=== PATIENT | female | born 1965 | race Two or more races ===

== ENCOUNTER → 2019-06-08 | Day surgery (SDC) | payer OTHER ==
--- NOTE | 2019-06-10 18:10 | PATH ---
Surgical Pathology Report Patient Name: DUYEN MCNEILL [facility]. Rec. #: [id number] /Age/Gender: 1965 (Age: 54) / F Account: [id number] Location: [facility] Taken: 06/08/2019 Received: 06/09/2019 Reported: 06/10/2019 Physicians: Zelda Roblero M.D. Specimen(s) Received LEFT BREAST 3.00 Clinical History 1.1 cm mass Final Diagnosis BREAST, LEFT, 3:00, ULTRASOUND GUIDED CORE BIOPSY: FIBROADENOMA. FIBROCYSTIC CHANGES INCLUDING STROMAL FIBROSIS, APOCRINE METAPLASIA, MICROCYST, AND RARE MICROCALCIFICATIONS. Electronically Signed Diane Young M.D. Gross Description Received in formalin labeled "left breast, 3:00" are 7 hubbard-yellow, cylindrical portions of fibroadipose tissue ranging from 0.7-1.1 cm in length and averaging 0.2 cm diameter. The specimens are submitted in toto in one cassette. Time to formalin fixation: <1 minute Total formalin fixation time: ~7 hours. MLSULMA/06/09/2019 issa/06/09/2019
== END | disposition home or self-care (01) ==
LOC: JRADUS-SUR 10:03
PROVIDERS: ATTEND Internal Medicine
PROC: 0HBU3ZX Excision of Left Breast, Percutaneous Approach, Diagnostic (ICD-10-PCS; principal; 2019-06-08)
DX: D24.2 Benign neoplasm of left breast (principal)
CPT/HCPCS: 19083; 76942-TC; 87899; 88305-TC; A4648

== ENCOUNTER 2021-11-18 11:19 | Emergency (ER) | payer OTHER ==
[2021-11-18 11:38] VITALS: PULSE 74; TEMP 97.9; BMI 27.3
[2021-11-18] MEDS ORDERED: KETOROLAC TROMETHAMINE 30 MG/1 ML VIAL IM ONE (11:56)
[2021-11-18] MEDS ORDERED: KETOROLAC TROMETHAMINE 30 MG/1 ML VIAL ONE (11:59)
[2021-11-18 13:37] VITALS: BP 152/79
== END 2021-11-18 13:15 | disposition home or self-care (01) ==
LOC: JERFT 11:19
PROC: 3E023GC Introduction of Other Therapeutic Substance into Muscle, Percutaneous Approach (ICD-10-PCS; principal; 2021-11-18)
DX: M25.562 Pain in left knee (principal)
CPT/HCPCS: 73562-TC-LT-FY; 96372; 99284-25